=== PATIENT | female | born 1985 | race Caucasian/White ===

== ENCOUNTER 2018-01-16 06:35 | Emergency (ER) | payer SELFPAY ==
[2018-01-16] MEDS ORDERED: NALOXONE HCL 0.4 MG/ML VIAL ONE (06:44)
[2018-01-16] MEDS ORDERED: SODIUM CHLORIDE 0.9% 500 ML INFUS.BAG IV ONE (06:44)
[2018-01-16 06:59] VITALS: TEMP 97; BMI 29.2
--- NOTE | 2018-01-16 07:31 | PDOC ---
Attending Attestation - Resident Resident Name: Jammie Dixon - ED Attending Attestation I have performed the following: I have examined & evaluated the patient, The case was reviewed & discussed with the resident, I agree w/resident's findings & plan, Exceptions are as noted - HPI HPI: 32 yo F history anxiety, depression, COPD presents with heroin overdose. She states that she recently ran out of [employer], has been feeling anxious and depressed, used heroin for the first time today. She does not remember anything after using it. She was given narcan by EMS, she is now awake and alert with no complaints. She is tearful on interview, stating she never wants to use it again. She has used cocaine in the past, but this is first time for heroin. Denies SI. - Physicial Exam PE: GENERAL: Awake, alert, and fully oriented, in no acute distress HEAD: No signs of trauma EYES: PERRLA, EOMI, sclera anicteric, conjunctiva clear ENT: Auricles normal inspection, hearing grossly normal, nares patent, oropharynx clear without exudates. Moist mucosa NECK: Normal ROM, supple, no lymphadenopathy, JVD, or masses LUNGS: Breath sounds equal, clear to auscultation bilaterally. No wheezes, and no crackles HEART: Regular rate and rhythm, normal S1 and S2, no murmurs, rubs or gallops ABDOMEN: Soft, nontender, normoactive bowel sounds. No guarding, no rebound. No masses EXTREMITIES: Normal range of motion, no edema. No clubbing or cyanosis. No cords, erythema, or tenderness NEUROLOGICAL: Cranial nerves II through XII grossly intact. Normal speech. Motor and sensation intact. SKIN: Warm, Dry, normal turgor, no rashes or lesions noted. - Medical Decision Making 01/16/18 08:08 Pt presents s/p heroin overdose, required narcan by EMS. She is awake and alert at present. Will continue to closely monitor her mental status in case she requires additional narcan. Will observe in the ED, monitoring to clinical sobriety. She has f/u with her psychiatrist in 2 days, does not want detox. 01/16/18 10:30 Patient has been awake, alert, clinically sober. She was able to eat breakfast. She is stable for discharge at this point.
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
[2018-01-16 10:37] VITALS: BP 110/54; PULSE 96
--- NOTE | 2018-01-18 10:38 | EKG ---
Test Reason : Blood Pressure : / mmHG Vent. Rate : 102 BPM Atrial Rate : 102 BPM P-R Int : 134 ms QRS Dur : 084 ms QT Int : 366 ms P-R-T Axes : 047 072 061 degrees QTc Int : 477 ms SINUS TACHYCARDIA OTHERWISE NORMAL ECG NO PREVIOUS ECGS AVAILABLE Confirmed by MD Harjinder, Suman ([id number]) on 01/18/2018 10:37:59 AM Referred By: Confirmed By:Suman Grande MD
== END 2018-01-16 10:37 | disposition home or self-care (01) ==
LOC: JER 06:35
DX: T40.1X1A Poisoning by heroin, accidental (unintentional), initial encounter (principal); Y92.018 Other place in single-family (private) house as the place of occurrence of the external cause; F41.9 Anxiety disorder, unspecified; F32.9 Major depressive disorder, single episode, unspecified; J44.9 Chronic obstructive pulmonary disease, unspecified; F17.210 Nicotine dependence, cigarettes, uncomplicated
CPT/HCPCS: 93005; 93010; 99285-25